=== PATIENT | female | born 1960 ===

== ENCOUNTER 2023-10-25 18:51 | Emergency (ER) | payer SELFPAY ==
[~2023-10-25] VITALS: Ht 167.6 cm; Wt 62.7 kg
[2023-10-25 19:02] VITALS: BP 136/81; PULSE 95; RESP 16; TEMP 97.5; O2SAT 99
== END 2023-10-25 21:17 | disposition left against medical advice (07) ==
LOC: EMS 18:51
DX: Z53.21 Procedure and treatment not carried out due to patient leaving prior to being seen by health care provider (principal)